=== PATIENT | female | born 1965 | race Caucasian/White ===

== ENCOUNTER 2021-12-10 19:19 | Emergency (ER) | payer SELFPAY ==
[~2021-12-10] VITALS: Ht 144.8 cm; Wt 59.0 kg
--- NOTE | 2021-12-10 20:20 | NUR ---
DICTAPHONE TECHNICIAN AT PT'S BEDSIDE
--- NOTE | 2021-12-10 20:27 | NUR ---
PT TAKEN TO CT VIA AMBULATION
[2021-12-10] MEDS ORDERED: CYCLOBENZAPRINE 10 MG TABLET ONE (20:28)
[2021-12-10] MEDS ORDERED: KETOROLAC TROMETHAMINE 15 MG/ML VIAL ONE (20:28)
[2021-12-10] MEDS: IV NS 0.9% 1,000 ML BAG IV ONE (20:32)
[2021-12-10] MEDS: CYCLOBENZAPRINE 10 MG TABLET PO ONE (20:32)
[2021-12-10] MEDS: KETOROLAC TROMETHAMINE INJ 30 MG/ML VIAL IV ONE (20:32)
[2021-12-10 21:10] LABS: BASOPHILS % (AUTO) 0.5 % (0.0-2.0); EOSINOPHILS % (AUTO) 2.5 % (0.0-6.0); HEMATOCRIT 39 % (33-45); HEMOGLOBIN 12.9 g/dL (11.5-14.8); LYMPHOCYTES # (AUTO) 2.7 K/uL (0.8-4.8); LYMPHOCYTES % (AUTO) 44.3 % (20.0-44.0); MEAN CORPUSCULAR HGB CONC 34 g/dl (31.0-36.0); MEAN CORPUSCULAR VOLUME 92 fL (82-100); MONOCYTES # (AUTO) 0.3 K/uL (0.1-1.30); MONOCYTES % (AUTO) 5.4 % (2.0-12.0); NEUTROPHILS # (AUTO) 2.9 K/uL (1.8-8.9); NEUTROPHILS % (AUTO) 47.3 % (43.0-81.0); PLATELET COUNT (AUTO) 245 K/uL (150-450); RED BLOOD CELL COUNT(AUTO) 4.16 MIL/uL (4.0-5.2); WHITE BLOOD COUNT (AUTO) 6.2 K/uL (4.3-11.0)
[2021-12-10 21:12] LABS: CALCIUM, SERUM 8.5 mg/dL (8.5-10.1); CREATININE 0.8 mg/dL (0.6-1.3); POTASSIUM 3.7 mmol/L (3.5-5.1)
[2021-12-10 21:17] LABS: ALBUMIN 3.6 g/dL (3.4-5.0); BILIRUBIN,DIRECT 0.1 mg/dL (0.0-0.2); BILIRUBIN,TOTAL 0.2 mg/dL (0.2-1.0)
--- NOTE | 2021-12-10 21:51 | NUR ---
BLOOD AND CULTURES DONE AND SENT TO LAB
[2021-12-10] MEDS ORDERED: CYCL10TA9 PO (22:02)
[2021-12-10] MEDS ORDERED: NAPR-1009 PO (22:02)
--- NOTE | 2021-12-10 22:26 | NUR ---
URINE COLLECTED AND SENT TO LAB
[2021-12-10 23:19] LABS: BILIRUBIN,URINE NEGATIVE (NEGATIVE); COLOR,URINE YELLOW (YELLOW); LEUKOCYTE ESTERASE ,URINE NEGATIVE (NEGATIVE); NITRITE, URINE NEGATIVE (NEGATIVE); PH,URINE 7.5 (5.0-8.0); PROTEIN,URINE NEGATIVE (NEGATIVE); UGLUCOSE NEGATIVE (NEGATIVE)
[2021-12-10 23:28] VITALS: BP 145/88
--- NOTE | 2021-12-10 23:28 | NUR ---
Patient discharged to home in stable condition. Written and verbal after care instructions given. Patient verbalizes understanding of instruction.
== END 2021-12-10 23:28 | disposition home or self-care (01) ==
LOC: ER 19:25
DX: S63.501A Unspecified sprain of right wrist, initial encounter (principal); S63.502A Unspecified sprain of left wrist, initial encounter; S50.01XA Contusion of right elbow, initial encounter; R10.31 Right lower quadrant pain; M62.830 Muscle spasm of back; Z79.899 Other long term (current) drug therapy; W19.XXXA Unspecified fall, initial encounter; Y93.89 Activity, other specified; Y92.89 Other specified places as the place of occurrence of the external cause; Y99.8 Other external cause status
CPT/HCPCS: 99285; 74176; 96374; 96361; 73080; 73110 ×2; 85025; 80048; 83605; 83690; 80076; 81003; 36415; J7030; J1885